=== PATIENT | female | born 1975 | race African-American/Black ===

== ENCOUNTER 2019-10-06 05:00 | Emergency (ER) | payer OTHER ==
[~2019-10-06] VITALS: Ht 165.1 cm; Wt 67.2 kg
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
[2019-10-06] MEDS ORDERED: HYDR-3812 PO (05:25)
[2019-10-06] MEDS ORDERED: CYCL10TA9 PO (05:25)
[2019-10-06] MEDS ORDERED: IBUP-1780 PO (05:25)
[2019-10-06] MEDS ORDERED: IBUPROFEN 800 MG (MOTRIN) TAB PO ONE (05:30)
[2019-10-06 05:49] LABS: BACTERIA,URINE NEGATIVE /HPF; BILIRUBIN,URINE NEGATIVE (NEGATIVE); CLARITY,URINE CLEAR; COLOR,URINE YELLOW; GLUCOSE, URINE (UA) NEGATIVE (NEGATIVE); KETONES,URINE NEGATIVE (NEGATIVE); LEUKOCYTE ESTERASE ,URINE NEGATIVE (NEGATIVE); NITRITE,URINE NEGATIVE (NEGATIVE); PROTEIN,URINE NEGATIVE (NEGATIVE); SQUAMOUS EPITHELIAL CELL,UR 0-2 /HPF; WBC,URINE RARE /HPF
[2019-10-06 05:58] VITALS: BP 157/88
[2019-10-06] MEDS ORDERED: HYDROcodone/APAP 10 MG/325 MG (LORTAB) TAB PO ONE (06:00)
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
== END 2019-10-06 06:07 | disposition home or self-care (01) ==
LOC: ER FS 05:07
DX: S22.000A Wedge compression fracture of unspecified thoracic vertebra, initial encounter for closed fracture (principal); V47.6XXA Car passenger injured in collision with fixed or stationary object in traffic accident, initial encounter
CPT/HCPCS: 72072; 81000